=== PATIENT | male | born 1955 | race Caucasian/White ===

== ENCOUNTER → 2024-01-06 07:08 | Outpatient (REF) | payer OTHER, SELFPAY ==
[2024-01-06 08:09] LABS: % Basophils 0.8 % (0-2); % Eosinophils 3.4 % (0-6); % Immature Granulocytes 0.4 % (0-0.5); % Lymphocytes 20.1 % (20.5-51.1); % Neutrophils 67.3 % (42.2-75.2); Absolute Basophils 0.1 10^3/uL (0-0.2); Absolute Eosinophils 0.3 10^3/uL (0-0.7); Absolute Lymphocytes 1.5 10^3/uL (1.2-3.4); Absolute Monocytes 0.6 10^3/uL (0.1-0.6); Absolute Neutrophils 5.2 10^3/uL (1.4-6.5); Hemoglobin 11.8 g/dL (13.0-18.0); Mean Corp Hgb Conc. 33.7 g/dL (33.0-37.0); Mean Corpuscular Volume 83.1 fL (80.0-94.0); Mean Platelet Volume 10.2 fL (7.4-10.4); Nucleated Red Blood Cells % 0 % (-); Platelet Count 233 10^3/uL (130-400); Red Blood Cell Count 4.21 10^6/uL (4.70-6.10); Red Cell Dist. Width 13.4 % (11.5-14.5); White Blood Cell Count 7.7 10^3/uL (4.8-10.8)
[2024-01-06 08:43] LABS: Glycohemoglobin (HgbA1c) 6.1 % (4.0-5.6)
[2024-01-06 08:45] LABS: Protein/creatinine Ratio 0.1; Urine Protein 9 mg/dl
[2024-01-06 08:50] LABS: Microalbumin, Random Urine 0.8 mg/dl (0.6-1.7)
[2024-01-06 09:26] LABS: ALT (SGPT) 27 U/L (0-50); AST (SGOT) 29 U/L (17-59); Alkaline Phosphatase 99 U/L (38-126); Blood Urea Nitrogen 30 mg/dl (9-20); Calcium 9.3 mg/dl (8.4-10.2); Carbon Dioxide 26 mmol/L (22-30); Chloride 105 mmol/L (98-107); Glucose 111 mg/dl (70-99); HDL Cholesterol 30 mg/dl; LDL Cholesterol, Calculated 70 mg/dl; Potassium 3.5 mmol/L (3.5-5.1); Sodium 139 mmol/L (135-145); Total Bilirubin 0.5 mg/dl (0.2-1.3); Total Cholesterol 144 mg/dl (50-199); Total Protein 6.3 g/dl (6.3-8.2); Triglyceride 223 mg/dl (10-149); Very Low Density Lipoprotein 44 mg/dl (0-30); eGFR > 60.00
== END ==
LOC: REG 07:08
PROVIDERS: ATTENDING PHYSICIAN Physician Assistant; FAMILY PHYSICIAN Family Medicine
DX: E11.65 Type 2 diabetes mellitus with hyperglycemia (principal)
CPT/HCPCS: 36415; 80053; 80061; 82043; 82570; 83036; 84156; 85025

== ENCOUNTER → 2024-07-29 06:25 | Outpatient (REF) | payer MEDICARE, SELFPAY ==
[2024-07-29 07:22] LABS: % Basophils 0.5 % (0-2); % Eosinophils 2.8 % (0-6); % Immature Granulocytes 0.4 % (0-0.5); % Lymphocytes 17.4 % (20.5-51.1); % Monocytes 6.3 % (1.7-9.3); % Neutrophils 72.6 % (42.2-75.2); Absolute Basophils 0.1 10^3/uL (0-0.2); Absolute Eosinophils 0.3 10^3/uL (0-0.7); Absolute Lymphocytes 1.6 10^3/uL (1.2-3.4); Absolute Monocytes 0.6 10^3/uL (0.1-0.6); Absolute Neutrophils 6.7 10^3/uL (1.4-6.5); Hematocrit 39.1 % (39.0-52.0); Hemoglobin 13.8 g/dL (13.0-18.0); Mean Corp Hgb Conc. 35.3 g/dL (33.0-37.0); Mean Corpuscular Hgb 28.2 pg (27.0-31.0); Nucleated Red Blood Cells % 0 % (-); Platelet Count 231 10^3/uL (130-400); Red Blood Cell Count 4.89 10^6/uL (4.70-6.10); Red Cell Dist. Width 12.4 % (11.5-14.5); White Blood Cell Count 9.3 10^3/uL (4.8-10.8)
[2024-07-29 07:46] LABS: ALT (SGPT) 37 U/L (0-50); AST (SGOT) 32 U/L (17-59); Albumin 4.4 g/dl (3.5-5.0); Alkaline Phosphatase 92 U/L (38-126); Blood Urea Nitrogen 32 mg/dl (9-20); Calcium 10.3 mg/dl (8.4-10.2); Carbon Dioxide 25 mmol/L (22-30); Chloride 104 mmol/L (98-107); Glucose 140 mg/dl (70-99); HDL Cholesterol 32 mg/dl; LDL Cholesterol, Calculated 114 mg/dl; Potassium 3.9 mmol/L (3.5-5.1); Sodium 143 mmol/L (135-145); Total Bilirubin 0.3 mg/dl (0.2-1.3); Total Cholesterol 208 mg/dl (50-199); Total Protein 6.6 g/dl (6.3-8.2); Triglyceride 310 mg/dl (10-149); Very Low Density Lipoprotein 62 mg/dl (0-30); eGFR > 60.00
[2024-07-29 11:02] LABS: Glycohemoglobin (HgbA1c) 7.2 % (4.0-5.6)
== END ==
LOC: REG 06:25
PROVIDERS: ATTENDING PHYSICIAN Physician Assistant; FAMILY PHYSICIAN Family Medicine
DX: E11.65 Type 2 diabetes mellitus with hyperglycemia (principal)
CPT/HCPCS: 36415; 80053; 80061; 83036; 85025

== ENCOUNTER → 2024-08-06 12:49 | Outpatient (REF) | payer MEDICARE, SELFPAY | LOC: RCS 12:49 | PROVIDERS: ATTENDING PHYSICIAN Internal Medicine Cardiovascular Disease; FAMILY PHYSICIAN Family Medicine | DX: I73.9 Peripheral vascular disease, unspecified (principal) | CPT/HCPCS: 93225; 93226 ==

== ENCOUNTER → 2025-05-17 07:15 | Outpatient (REF) | payer OTHER, SELFPAY ==
[2025-05-17 09:40] LABS: Urine Character Clear (Clear)
[2025-05-17 09:54] LABS: ALT (SGPT) 20 U/L (0-50); AST (SGOT) 22 U/L (17-59); Albumin 4.5 g/dl (3.5-5.0); Alkaline Phosphatase 90 U/L (38-126); Blood Urea Nitrogen 30 mg/dl (9-20); Calcium 10.3 mg/dl (8.4-10.2); Carbon Dioxide 27 mmol/L (22-30); Chloride 105 mmol/L (98-107); Glucose 150 mg/dl (70-99); HDL Cholesterol 31 mg/dl; LDL Cholesterol, Calculated 114 mg/dl; Potassium 4.0 mmol/L (3.5-5.1); Sodium 140 mmol/L (135-145); Total Protein 6.9 g/dl (6.3-8.2); Very Low Density Lipoprotein 73 mg/dl (0-30); eGFR 59.84
[2025-05-17 10:03] LABS: Hematocrit 40.4 % (39.0-52.0); Hemoglobin 13.7 g/dL (13.0-18.0); Mean Corp Hgb Conc. 33.9 g/dL (33.0-37.0); Mean Corpuscular Volume 81.5 fL (80.0-94.0); Nucleated Red Blood Cells % 0 % (-); Platelet Count 221 10^3/uL (130-400); Red Cell Dist. Width 12.0 % (11.5-14.5)
[2025-05-17 10:18] LABS: TSH 3.20 uIU/ml (0.47-4.68)
[2025-05-17 10:23] LABS: Microalb - Urine Creatinine 58.800 mg/dl
[2025-05-17 10:28] LABS: Microalbumin, Random Urine 0.8 mg/dl (0.6-1.7)
[2025-05-17 10:55] LABS: Glycohemoglobin (HgbA1c) 7.4 % (4.0-5.6)
== END ==
LOC: REG 07:15
PROVIDERS: ATTENDING PHYSICIAN Family Medicine
DX: Z00.00 Encounter for general adult medical examination without abnormal findings (principal)
CPT/HCPCS: 36415; 80053; 80061; 81003; 82043; 82570; 83036; 84153; 84154; 84443; 85025

== ENCOUNTER → 2025-06-04 09:51 | Outpatient (REF) | payer OTHER, SELFPAY | LOC: REG 09:51 | PROVIDERS: ATTENDING PHYSICIAN Family Medicine | DX: Z11.1 Encounter for screening for respiratory tuberculosis (principal) | CPT/HCPCS: 36415; 86480 ==

== ENCOUNTER → 2025-06-20 12:44 | Outpatient (REF) | payer OTHER, SELFPAY | LOC: RCS 12:44 | PROVIDERS: ATTENDING PHYSICIAN Internal Medicine Cardiovascular Disease; FAMILY PHYSICIAN Family Medicine | DX: I77.810 Thoracic aortic ectasia (principal) | CPT/HCPCS: 93306 ==

== ENCOUNTER → 2025-09-06 07:21 | Outpatient (REF) | payer OTHER, SELFPAY ==
[2025-09-06 09:29] LABS: ALT (SGPT) 22 U/L (0-50); AST (SGOT) 23 U/L (17-59); Albumin 4.2 g/dl (3.5-5.0); Alkaline Phosphatase 85 U/L (38-126); Blood Urea Nitrogen 27 mg/dl (9-20); Calcium 9.9 mg/dl (8.4-10.2); Carbon Dioxide 26 mmol/L (22-30); Chloride 106 mmol/L (98-107); Glucose 118 mg/dl (70-99); HDL Cholesterol 30 mg/dl; LDL Cholesterol, Calculated 109 mg/dl; Potassium 3.8 mmol/L (3.5-5.1); Sodium 138 mmol/L (135-145); Total Protein 6.6 g/dl (6.3-8.2); Very Low Density Lipoprotein 41 mg/dl (0-30); eGFR 59.84
[2025-09-06 10:11] LABS: Glycohemoglobin (HgbA1c) 6.8 % (4.0-5.9)
== END ==
LOC: REG 07:21
PROVIDERS: ATTENDING PHYSICIAN Family Medicine
DX: E78.00 Pure hypercholesterolemia, unspecified (principal); E11.59 Type 2 diabetes mellitus with other circulatory complications; N18.31 Chronic kidney disease, stage 3a
CPT/HCPCS: 36415; 80053; 80061; 83036